=== PATIENT | female | born 1990 | race Two or more races ===

== ENCOUNTER 2020-03-16 12:50 | Emergency (ER) | payer OTHER ==
[2020-03-16] MEDS ORDERED: ACETAMINOPHEN 325 MG TABLET PO ONE (14:35)
--- NOTE | 2020-03-16 14:36 | ER Document Report ---
ED Fever - General Chief Complaint: Cough Stated Complaint: COUGH,DIARRHEA,FEVER,HEADACHE Time Seen by Provider: 03/16/20 13:46 Primary Care Provider: MIKE NYE MD [COMMUNITY BASED STAFF] - Follow up as needed Mode of Arrival: Ambulatory Information source: Patient Notes: 29-year-old female with no previous medical problems presents to the emergency room complaining of 2 loose diarrhea type stools daily for the past 2days. Also complains of a low-grade fever, headache, sore throat, cough. Patient states she has been running a low-grade fever of 99 she went to work today was positive for fever and was referred to the emergency room. Patient said she was sent home from work and told to quarantine for 2 weeks as she works as a terrazzo worker apprenticepersonnel training officer for [employer] she has not had any recent travel. She has had no known COVID-19 exposure. TRAVEL OUTSIDE OF THE [place] IN LAST 30 DAYS: No - Related Data Allergies/Adverse Reactions: No Known Allergies Allergy (Unverified 03/16/20 15:33) Past Medical History - General Information source: Patient - Social History Smoking Status: Never Smoker Frequency of alcohol use: Occasional Drug Abuse: None Family History: Reviewed & Not Pertinent - Medical History Medical History: Negative Review of Systems - Review of Systems Constitutional: Fever EENT: Throat pain Cardiovascular: No symptoms reported Respiratory: Cough. denies: Short of breath Gastrointestinal: No symptoms reported Musculoskeletal: No symptoms reported Skin: No symptoms reported Hematologic/Lymphatic: No symptoms reported Neurological/Psychological: Headaches -: Yes All other systems reviewed and negative Physical Exam - Vital signs Vitals: Temp Pulse Resp BP Pulse Ox 100.0 F 88 16 118/66 100 03/16/20 13:35 03/16/20 13:35 03/16/20 13:35 03/16/20 13:35 03/16/20 13:35 - Notes Notes: VITAL SIGNS: Within normal limits. GENERAL: Mild acute distress, non-toxic appearance. HEAD: Normal with no signs of head trauma. EYES: PERRLA, EOMI, conjunctiva normal, no discharge. EARS: Hearing grossly intact. NOSE: Normal. THROAT: Oropharynx is normal. Posterior pharyngeal erythema without exudate. No tonsillar enlargement. NECK: Normal range of motion, no tenderness, supple, no lymphadenopathy, No adenopathy, no JVD. No meningococcal signs, CHEST: Clear breath sounds bilaterally. No wheezes, rales, or rhonchi. CARDIAC: Regular rate and rhythm. S1 and S2, without murmurs, gallops, or rubs. VASCULAR: No Edema. Peripheral pulses normal and equal in all extremities. ABDOMEN: Normal and soft with no tenderness, no masses or pulsatile masses. GASTROINTESTINAL: Bowel sounds normal GENITOURINARY: Normal, No tenderness LYMPATHTIC: No lymphadenopathy noted. MUSCULOSKELETAL: Good range of motion of all major joints. Extremities without clubbing, cyanosis or edema. NEUROLOGICAL: Alert and oriented x 3. No focal sensory or strength deficits. Speech normal. Follows commands appropriately. PSYCHIATRIC: Normal Affect, judgement and mood. SKIN: Normal appearance with no rashes or lesions. Course - Re-evaluation Re-evalutation: 03/16/20 16:34 She is resting comfortably she is afebrile, nontoxic-appearing, tolerates p.o. fluids. Reviewed all test results with patient. Patient is concerned about possible COVID-19 as she works as a personnel training officer for [employer]. Patient was counseled that we can do COVID-19 testing however the test results could take anywhere from 6 to 8 days. She will need to self quarantine until she gets her test results. If her test results are positive she needs to continue self quarantine for a full 14 days. Patient refused COVID 19 testing. Patient was counseled on a clear liquid diet for the next 24 hours. Advance to bland diet as tolerated. Outpatient follow-up with a primary care physician if not improving in 2 to 3 days. On-call physician was provided. Patient was given strict return to the emergency room guidelines. Return for any new or worsening symptoms. All questions were answered. Patient verbalized understanding and agrees with plan of care. 03/16/20 16:48 - Vital Signs Vital signs: Temp Pulse Resp BP Pulse Ox 99.3 F 87 18 131/80 H 99 03/16/20 17:19 03/16/20 17:19 03/16/20 17:19 03/16/20 17:19 03/16/20 17:19 - Laboratory Laboratory results interpreted by me: 03/16/20 15:40 Urine Ketones 80 H Urine Blood LARGE H - Diagnostic Test Radiology reviewed: Reports reviewed Discharge - Discharge Clinical Impression: Cough Fever Qualifiers: Fever type: unspecified Qualified Code(s): R50.9 - Fever, unspecified Diarrhea Qualifiers: Diarrhea type: unspecified type Qualified Code(s): R19.7 - Diarrhea, unspecified Condition: Stable Disposition: HOME, SELF-CARE Instructions: Clear Liquid Diet ([facility]), Diarrhea, Nonspecific ([facility]), Fever ([facility]), Viral Syndrome ([facility]) Additional Instructions: Take Tylenol and/or Motrin as needed for fevers. You need to self quarantine for the next 14 days unless you receive a negative COVID-19 test result prior to that time. Recommend outpatient follow-up with her primary care physician if not improving in 2 to 3 days. Return for any new or worsening symptoms. Referrals: MIKE NYE MD [COMMUNITY BASED STAFF] - Follow up as needed
--- NOTE | 2020-03-16 15:45 | RADIOLOGY REPORT (SQ) ---
EXAM DESCRIPTION: CHEST SINGLE VIEW IMAGES COMPLETED DATE/TIME: 03/16/2020 3:22 pm REASON FOR STUDY: cough COMPARISON: None. EXAM PARAMETERS: NUMBER OF VIEWS: One view. TECHNIQUE: Single frontal radiographic view of the chest acquired. RADIATION DOSE: NA LIMITATIONS: None. FINDINGS: LUNGS AND PLEURA: No opacities, masses or pneumothorax. No pleural effusion. MEDIASTINUM AND HILAR STRUCTURES: No masses. Contour normal. HEART AND VASCULAR STRUCTURES: Heart normal in size. Normal vasculature. BONES: No acute findings. HARDWARE: None in the chest. OTHER: No other significant finding. IMPRESSION: NO ACUTE RADIOGRAPHIC FINDING IN THE CHEST. TECHNICAL DOCUMENTATION: JOB ID: [id number] 2010 [employer]- All Rights Reserved Reading location - IP/workstation name: [email or web address]
[2020-03-16 16:19] LABS: APPEARANCE,URINE CLEAR; BILIRUBIN,URINE NEGATIVE (NEGATIVE); COLOR,URINE YELLOW; GLUCOSE, URINE NEGATIVE (NEGATIVE); KETONES,URINE 80 mg/dL (NEGATIVE); LEUKOCYTE ESTERASE,URINE NEGATIVE (NEGATIVE); NITRITE,URINE NEGATIVE (NEGATIVE); PROTEIN,URINE NEGATIVE (NEGATIVE); URINE SPECIFIC GRAVITY 1.011; UROBILINOGEN,URINE NEGATIVE mg/dL (<2.0)
[2020-03-16 16:31] LABS: A TYPE INFLUENZA AG NEGATIVE (NEGATIVE); B INFLUENZA AG NEGATIVE (NEGATIVE)
[2020-03-16 17:22] VITALS: BP 131/80
== END 2020-03-16 17:22 | disposition home or self-care (01) ==
LOC: ER 12:50
DX: R05 Cough (principal); R19.7 Diarrhea, unspecified; R50.9 Fever, unspecified; R51 Headache; Z20.828 Contact with and (suspected) exposure to other viral communicable diseases
CPT/HCPCS: 71045; 81001; 81025; 87070; 87804; 87880; 99283

== ENCOUNTER 2020-03-20 18:47 | Emergency (ER) | payer OTHER ==
--- NOTE | 2020-03-20 20:13 | ER Document Report ---
ED Respiratory Problem - General Chief Complaint: Shortness Of Breath Stated Complaint: DIFFICULTY BREATHING/NAUSEA/VOMITING Time Seen by Provider: 03/20/20 19:33 Notes: CHIEF COMPLAINT: Continued cough, flulike symptoms, vaginal itching HPI: 29-year-old female presenting to the emergency department for reevaluation, states she was seen here 4 days ago for same complaints, states she has a continued productive cough with yellow sputum. Reports some pain in the right back and thoracic region not sure if it is from coughing. Patient reports vaginal itching that began yesterday. Patient denies dysuria. States she has not had fever but has had some nausea. ROS: See HPI - all other systems were reviewed and are otherwise negative Constitutional: no fever Eyes: no drainage, no blurred vision ENT: no runny nose, no sore throat Cardiovascular: + chest pain with coughing Resp: no SOB, + cough GI: no vomiting, no diarrhea, no abdominal pain : no dysuria, positive vaginal itching Integumentary: no rash Allergy: no hives Musculoskeletal: no extremity pain or swelling Neurological: no numbness/tingling, no weakness MEDICATIONS: I agree with the patient medications as charted by the RN. ALLERGIES: I agree with the allergies as charted by the RN. PAST MEDICAL HISTORY/PAST SURGICAL HISTORY: Reviewed and agree as charted by RN. SOCIAL HISTORY: Reviewed and agree as charted by RN. FAMILY HISTORY: No significant familial comorbid conditions directly related to patient complaint EXAM: Reviewed vital signs as charted by RN. CONSTITUTIONAL: Alert and oriented and responds appropriately to questions. Well-appearing; well-nourished HEAD: Normocephalic; atraumatic EYES: PERRL; Conjunctivae clear, sclerae non-icteric ENT: normal nose; no rhinorrhea; moist mucous membranes; pharynx without lesions noted, no uvula edema or deviation, no tonsillar hypertrophy, phonation normal NECK: Supple without meningismus; non-tender; no cervical lymphadenopathy, no masses CARD: RRR; no murmurs, no clicks, no rubs, no gallops; symmetric distal pulses RESP: Normal chest excursion without splinting or tachypnea; breath sounds clear and equal bilaterally; no wheezes, no rhonchi, no rales, pulse oximetry 97% on room air not hypoxic ABD/GI: Normal bowel sounds; non-distended; soft, non-tender, no rebound, no guarding; no palpable organomegaly or masses. : Female nurse manager protein present. External genitalia normal. No skin lesions noted. Pelvic Exam: No active bleeding. No purulent discharge. Cervix appears normal. No CMT. No lesions or masses. Uterus normal size and non tender. Right/Left adnexa normal size and non tender. BACK: The back appears normal and is non-tender to palpation, there is no CVA tenderness EXT: Normal ROM in all joints; non-tender to palpation; no cyanosis, no effusions, no edema SKIN: Normal color for age and race; warm; dry; good turgor; no acute lesions noted NEURO: Moves all extremities equally; Motor and sensory function intact PSYCH: The patient's mood and manner are appropriate. Grooming and personal hygiene are appropriate. MDM: TRAVEL OUTSIDE OF THE [place] IN LAST 30 DAYS: No - Related Data Allergies/Adverse Reactions: No Known Allergies Allergy (Unverified 03/16/20 15:33) Past Medical History - Social History Smoking Status: Never Smoker Frequency of alcohol use: Occasional Drug Abuse: None Family History: Reviewed & Not Pertinent Patient has homicidal ideation: No Physical Exam - Vital signs Vitals: Temp 98.4 F 03/20/20 19:00 Course - Re-evaluation Re-evalutation: 03/20/20 21:05 I discussed evaluation results at length with the patient. We discussed her trichomonas diagnosis. She is aware she needs to notify any sexual partners the need for treatment no sexual intercourse for 10 days. Patient is complaining of some nausea currently, will place her on 1 week of Flagyl 500 mg twice daily to treat the Trichomonas. She is aware GC and Chlamydia cultures are pending. She is aware COVID culture is pending, self quarantine at home for [address] the patient on an inhaler of albuterol for her cough. Her discomfort in the right side is likely from her coughing as it is somewhat reproducible. Urine did show some white cells but it was not a true clean-catch specimen, will add a urine culture. Patient verbalizes understanding - Vital Signs Vital signs: Temp Pulse Resp BP Pulse Ox 98 F 84 16 137/89 H 100 03/20/20 19:38 03/20/20 19:38 03/20/20 19:38 03/20/20 19:38 03/20/20 19:38 - Laboratory Laboratory results interpreted by me: 03/20/20 20:39 Urine Ketones 80 H Urine Blood SMALL H Ur Leukocyte Esterase LARGE H Discharge - Discharge Clinical Impression: Person under investigation for COVID-19, Trichomonas infection Condition: Stable Disposition: HOME, SELF-CARE Instructions: Trichomonas Infection ([facility]) Additional Instructions: Continue to take the Mucinex to help with coughing. Use the albuterol inhaler 2 puffs every 4 hours as needed for coughing. Motrin or Tylenol consistently for pain. You were noted to have trichomonas on your exam today, this is considered a sexually transmitted disease. No sexual intercourse for 10 days. You have been prescribed Flagyl to treat this. Notify any sexual partners of need for treatment so you do not pass this infection. You are considered a person under investigation at this time self quarantine at home until you have a negative COVID study which normally takes 24 to 48 hours and you will hear from someone from the hospital about this Prescriptions: Metronidazole [Flagyl 500 mg Tablet] 500 mg PO BID #14 tablet Albuterol Sulfate [Proair HFA Inhalation Aerosol 8.5 gm MDI] 2 puff IH Q4H PRN #1 mdi PRN Reason: Ondansetron [Zofran Odt 4 mg Tablet] 1 - 2 tab PO Q4H PRN #15 tab.rapdis PRN Reason: For Nausea/Vomiting Referrals: SARAH COLEMAN MD [ACTIVE STAFF] - Follow up as needed
--- NOTE | 2020-03-20 20:24 | RADIOLOGY REPORT (SQ) ---
EXAM DESCRIPTION: XR CHEST 1 VIEW COMPLETED DATE/TME: 03/20/2020 19:46 CLINICAL HISTORY: 29 years, Female, cough COMPARISON: Prior chest radiograph from 03/16/2020 NUMBER OF VIEWS: One TECHNIQUE: Single frontal view of the chest was obtained portably LIMITATIONS: None. FINDINGS: Cardiac and mediastinal contours are stable. Lungs are clear. No pleural effusion or pneumothorax. IMPRESSION: No acute disease. copyright 2010 [employer]- All Rights Reserved
[2020-03-20 20:48] LABS: BACTERIA (WET MOUNT) 3+ BACTERIA SEEN; EPITHELIALS (WET MOUNT) 3+ EPITHELIALS SEEN; RBCS (WET MOUNT) 1+ RBCS SEEN; T.VAGINALIS (WET MOUNT) TRICHOMONAS SEEN; WBCS (WET MOUNT) 1+ WBCS SEEN; YEAST (WET MOUNT) NO YEAST SEEN
[2020-03-20 20:49] LABS: APPEARANCE,URINE SLIGHTLY-CLOUDY; BILIRUBIN,URINE NEGATIVE (NEGATIVE); COLOR,URINE YELLOW; GLUCOSE, URINE NEGATIVE (NEGATIVE); KETONES,URINE 80 mg/dL (NEGATIVE); LEUKOCYTE ESTERASE,URINE LARGE (NEGATIVE); NITRITE,URINE NEGATIVE (NEGATIVE); PROTEIN,URINE NEGATIVE (NEGATIVE); URINE SPECIFIC GRAVITY 1.012; UROBILINOGEN,URINE NEGATIVE mg/dL (<2.0)
[2020-03-20] MEDS ORDERED: ONDANSETRON 4 MG TAB.RAPDIS PO ONE (21:03)
[2020-03-20 21:34] VITALS: BP 128/81
[2020-03-20 22:16] LABS: CHLAM PCR NOT DETECTED (NOT DETECT)
== END 2020-03-20 21:34 | disposition home or self-care (01) ==
LOC: ER 18:47
DX: U07.1 COVID-19 (principal); A59.9 Trichomoniasis, unspecified; R05 Cough; M54.9 Dorsalgia, unspecified; R11.0 Nausea
CPT/HCPCS: 99285; 87086; 87210; 87635; 81025; 87088; 81001; 87491; 87591; 71045; S0119; C9803

== ENCOUNTER 2020-03-23 23:45 | Emergency (ER) | payer OTHER ==
[2020-03-24] MEDS ORDERED: DEXAMETHASONE SOD PHOS INJ 10 MG/1 ML VIAL IM ONE (00:31)
--- NOTE | 2020-03-24 00:37 | ER Document Report ---
HPI - HPI Time Seen by Provider: 03/24/20 00:00 Pain Level: Denies Context: Patient is a 29-year-old female that comes emergency department for chief complaint of sore throat, cough, body aches. Patient states that she became concerned tonight because she woke up from sleep gagging on mucus and felt like she could not swallow for a brief period of time. She reports increasing pain with swallowing. She still able to swallow, she states she is hydrating well, she denies vomiting, headache, difficulty breathing, chest pain. She states she was running fevers but these resolved. She states she was seen twice already recently, she had COVID-19 testing but is still pending the results. She denies smoking, she denies any daily medications, she denies any diagnosed medical history. She denies . - CONSTITUTIONAL Constitutional: DENIES: Fever, Chills - RESPIRATORY Respiratory: REPORTS: Coughing - REPRODUCTIVE Reproductive: DENIES: : Past Medical History - General Information source: Patient - Social History Smoking Status: Never Smoker Frequency of alcohol use: None Drug Abuse: None Lives with: Family Family History: Reviewed & Not Pertinent Patient has homicidal ideation: No Surgical Hx: Negative - Immunizations Immunizations up to date: Yes Hx Diphtheria, Pertussis, Tetanus Vaccination: Yes Vertical Provider Document - CONSTITUTIONAL General Appearance: WD/WN, No Apparent Distress - INFECTION CONTROL TRAVEL OUTSIDE OF THE [place] IN LAST 30 DAYS: No - HEENT HEENT: Atraumatic, Normocephalic. negative: Normal ENT Exam - Tonsillitis with erythema both tonsils, no peritonsillar abscess, unremarkable uvula, patent airway. Unremarkable ears, eyes, sinuses. - NECK Neck: Other - Mild bilateral anterior cervical adenopathy - RESPIRATORY Respiratory: Breath Sounds Normal, No Respiratory Distress - CARDIOVASCULAR Cardiovascular: Regular Rate, Regular Rhythm - GI/ABDOMEN Gastrointestinal: Abdomen Soft, Abdomen Non-Tender. negative: Abdomen Tender - BACK Back: Normal Inspection - MUSCULOSKELETAL/EXTREMETIES Musculoskeletal/Extremeties: MAEW, FROM, Non-Tender - NEURO Level of Consciousness: Awake, Alert, Appropriate Motor/Sensory: No Motor Deficit, No Sensory Deficit - DERM Integumentary: Warm, Dry, No Rash Course - Re-evaluation Re-evalutation: Review of previous records shows that patient is negative for strep, negative for throat culture growth, but positive for COVID-19. Patient has tonsillitis with erythema of the tonsils bilaterally but no peritonsillar abscess, mild lymphadenopathy anteriorly. She has clear lungs, no cough, no headache, no nuchal rigidity, soft abdomen, no vomiting, and vital signs are unremarkable. She is actually very well-appearing. She is tolerating secretions and can take p.o. without any difficulty. Patient does not require admission, we discussed options. Patient will be given dexamethasone for her symptoms, discussed [id number] medications, quarantine, follow-up, return precautions in detail. Patient states understanding and agreement. Stable and well-appearing at time of discharge. - Vital Signs Vital signs: Temp Pulse Resp BP Pulse Ox 98.4 F 74 16 139/71 H 99 03/24/20 00:01 03/24/20 00:01 03/24/20 00:01 03/24/20 00:01 03/24/20 00:01 Discharge - Discharge Clinical Impression: Tonsillitis, COVID-19 Pharyngitis Qualifiers: Pharyngitis/tonsillitis etiology: unspecified etiology Qualified Code(s): J02.9 - Acute pharyngitis, unspecified Condition: Stable Disposition: HOME, SELF-CARE Additional Instructions: You are positive for COVID-19, this is a viral illness that resolved with time. Please complete the 2-week quarantine to avoid infecting others with this. You can take 600 mg of ibuprofen and 1000 mg of Tylenol every 6 hours if needed for pain, drink plenty fluids, you have been medicated with Decadron to help with your symptoms as well. Follow with primary care. Return if you worsen including spiking fevers, difficulty breathing, inability to swallow, or any other concerning or worsening symptoms.
[2020-03-24 01:22] VITALS: BP 117/64
== END 2020-03-24 01:22 | disposition home or self-care (01) ==
LOC: ER 23:45
DX: U07.1 COVID-19 (principal); J02.9 Acute pharyngitis, unspecified; R05 Cough; M79.10 Myalgia, unspecified site
CPT/HCPCS: 99284; 96372; J1100

== ENCOUNTER 2020-03-25 05:33 | Emergency (ER) | payer OTHER ==
[2020-03-25] MEDS ORDERED: NORMAL SALINE 1000 ML 1,000 ML IV ONE (06:35)
--- NOTE | 2020-03-25 06:37 | ER Document Report ---
ED General - General Chief Complaint: Sore Throat Stated Complaint: SORE THROAT/COVID POSSITIVE Time Seen by Provider: 03/25/20 06:01 Notes: 29-year-old female presents to the emergency department history of the coronavirus positive diagnosis last week. She has been in the emergency department third visit because of what appears to be anxiety related to her diagnosis and symptoms. She is complaining of shortness of breath and some difficulty swallowing. She presently is afebrile and in no respiratory distress. TRAVEL OUTSIDE OF THE [place] IN LAST 30 DAYS: No - Related Data Allergies/Adverse Reactions: No Known Allergies Allergy (Unverified 03/24/20 00:17) Past Medical History - General Information source: Patient - Social History Smoking Status: Never Smoker Chew tobacco use (# tins/day): No Frequency of alcohol use: None Drug Abuse: None Family History: Reviewed & Not Pertinent Patient has homicidal ideation: No - Immunizations Immunizations up to date: Yes Hx Diphtheria, Pertussis, Tetanus Vaccination: Yes Review of Systems - Review of Systems Notes: Constitutional: Negative for fever. HENT: + Swallowing difficulties, + sore throat Eyes: Negative for visual changes. Cardiovascular: Negative for chest pain. Respiratory: + Shortness of breath. Gastrointestinal: Negative for abdominal pain, vomiting or diarrhea. Genitourinary: Negative for dysuria. Musculoskeletal: Negative for back pain. Skin: Negative for rash. Neurological: Negative for headaches, weakness or numbness. 10 point ROS negative except as marked above and in HPI. Physical Exam - Vital signs Vitals: Temp Pulse BP Pulse Ox 98.6 F 80 127/81 H 100 03/25/20 05:55 03/25/20 05:55 03/25/20 05:55 03/25/20 05:55 - Notes Notes: PHYSICAL EXAMINATION: Physical Exam: General: Well-nourished [id number] year-old female in no acute distress HEENT: NC/AT, pupils equal round and reactive to light, MM moist,nares clear, oropharynx clear, airway patent Neck: supple, no adenopathy, no masses. Good range of motion Lungs: clear, no wheezing, no rales no rhonchi CVS: Regular rate and rhythm no murmur gallop or rub Abdomen: Soft, active, nontender, no masses, no hepatosplenomegaly Ext: No edema, clubbing or cyanosis. Neuro: Alert and responsive, moving all 4 extremities on command, cranial nerves intact, no focal findings Skin: Intact no open lesions, no rash PSYCH: Somewhat anxious and nervous, Course - Re-evaluation Re-evalutation: 03/25/20 09:11 The patient's chest x-ray continues to be clear, CBC reveals and anemia however, white cell count is normal and platelets are normal. I have discussed these findings with the patient and expressed to her my concerns about her anxiety provoking the recurrent visits to the emergency department. She is encouraged to quarantine at home and to use the vitamin D and zinc that she has been given as a part of the treatment protocol. The patient states that she understands this plan and is in agreement. - Vital Signs Vital signs: Temp Pulse Resp BP Pulse Ox 98.6 F 80 112/74 100 03/25/20 05:55 03/25/20 05:55 03/25/20 07:33 03/25/20 07:34 - Laboratory Result Diagrams: 03/25/20 06:57 03/25/20 07:30 Laboratory results interpreted by me: 03/25/20 06:57 Hgb 9.3 L Hct 30.1 L MCV 63 L MCH 19.5 L MCHC 31.0 L RDW 18.1 H [place] % (Auto) 13.4 H Discharge - Discharge Clinical Impression: COVID-19 virus infection, Anxiety Condition: Good Disposition: HOME, SELF-CARE Additional Instructions: You are diagnosed with coronavirus infection. Your symptoms are related to a viral illness, you you should self isolate at home, you are given a prescription for vitamin D and zinc. These 2 compounds are thought to help the immune system fight off the virus. Please continue to avoid given this virus to other people. Please wear a face cover, social distancing and isolation is needed. HOME CARE INSTRUCTIONS & INFORMATION: Thank you for choosing us for your medical needs. We hope you're satisfied with the care you received. After you leave, you must properly care for your problem and, at the same time, observe its progress. Any condition can change. Some illnesses can change rapidly over hours or days. If your condition worsens, return to the Emergency Department or see your physician promptly. ABOUT YOUR X-RAYS AND EKG'S: If you had an EKG or X-rays taken, they have been read by the Emergency Physician. The X-rays and EKG's will also be read by a Radiologist or Testing Director within 24 hours. If discrepancies are noted, you will be notified by telephone. Please be certain the ED has a correct telephone number & address where you can be reached. Also, realize that some fractures or abnormalities do not show up on initial X-rays. If your symptoms continue, see your physician. ABOUT YOUR LABORATORY TEST: If you had laboratory tests, the results have been reviewed by the Emergency Physician. Some test results (for example cultures) may not be available for several days. You will be contacted if any test result shows you need additional treatment. Please be certain the ED has a correct telephone number and address where you can be reached. ABOUT YOUR MEDICATIONS: You will receive instructions on how to take your medi cine on the prescription label you receive. Additional information may be provided by the Pharmacy. If you have questions afterwards, call the ED for clarification or further instructions. Some prescribed medications may cause drowsiness. Do not perform tasks such as driving a car or operating machinery without consulting your Pharmacist. If you feel you need a refill of pain medication, your condition will need re-evaluation. Please do not call for a refill of any medication. ABOUT YOUR SIGNATURE: Signature of this document acknowledges to followin. Understanding that you received emergency treatment and that you may be released before al medical problems are known or treated. Please be certain the ED has a correct phone number & address where you can be reached. 2. Acknowledgement that you will arrange for follow-up care as recommended. 3. Authorization for the Emergency Physician to provide information to your follow-up Physician in order to maximize your care. AT ANY TIME, IF YOUR SYMPTOMS CHANGE SIGNIFICANTLY OR WORSEN OR YOU DEVELOP NEW SYMPTOMS, RETURN TO THE EMERGENCY DEPARTMENT IMMEDIATELY FOR RE-EVALUATION. OUR GOAL IS TO PROVIDE EXCELLENT MEDICAL CARE! WE HOPE THAT WE HAVE MET YOUR EXPECTATIONS DURING YOUR EMERGENCY DEPARTMENT VISIT AND THAT YOU FEEL YOU HAVE RECEIVED EXCELLENT CARE! Prescriptions: Cholecalciferol (Vitamin D3) [Vitamin D3 3000 unit Tablet] 3,000 unit PO DAILY #60 tablet Zinc [Zinc Chelated] 50 mg PO DAILY #60 tablet
[2020-03-25] MEDS ORDERED: DEXAMETHASONE SOD PHOSPHATE INJ 4 MG/1 ML VIAL IV ONE (06:56)
[2020-03-25 08:03] LABS: ABSOLUTE LYMPHOCYTES (AUTO) 1.1 10^3/uL (0.5-4.7); ABSOLUTE MONOCYTES (AUTO) 0.6 10^3/uL (0.1-1.4); ABSOLUTE NEUT (AUTO) 2.9 10^3/uL (1.7-8.2); BASOPHILS % (AUTO) 0.1 % (0-2); EOSINOPHILS % (AUTO) 0.3 % (0-6); HEMATOCRIT 30.1 % (36.0-47.0); HEMOGLOBIN 9.3 g/dL (12.0-15.5); LYMPHOCYTES % (AUTO) 23.8 % (13-45); MEAN CORPUSCULAR HEMOGLOBIN 19.5 pg (27.0-33.4); MONOCYTES % (AUTO) 13.4 % (3-13); RED BLOOD COUNT 4.78 10^6/uL (3.72-5.28); RED CELL DISTRIBUTION WIDTH 18.1 % (11.5-14.0); SEGMENTED NEUTROPHILS % (AUTO) 62.4 % (42-78); TOTAL CELLS COUNTED % (AUTO) 100 %; WHITE BLOOD COUNT 4.6 10^3/uL (4.0-10.5)
--- NOTE | 2020-03-25 08:38 | RADIOLOGY REPORT (SQ) ---
EXAM DESCRIPTION: CHEST SINGLE VIEW IMAGES COMPLETED DATE/TIME: 03/25/2020 8:04 am REASON FOR STUDY: shortness of breath COMPARISON: AP view of the chest from 03/20/2020. EXAM PARAMETERS: NUMBER OF VIEWS: One view. TECHNIQUE: An AP view of the chest was obtained. RADIATION DOSE: NA LIMITATIONS: None. FINDINGS: LUNGS AND PLEURA: No consolidation, pleural effusion or pneumothorax. MEDIASTINUM AND HILAR STRUCTURES: No mediastinal or hilar contour abnormality. HEART AND VASCULAR STRUCTURES: The cardiac silhouette and pulmonary vasculature are within normal epperson its. BONES: No acute findings. HARDWARE: None in the chest. OTHER: No other finding. IMPRESSION: No acute cardiopulmonary process. TECHNICAL DOCUMENTATION: JOB ID: [id number] 2010 [employer]- All Rights Reserved Reading location - IP/workstation name: [email or web address]
[2020-03-25 08:39] LABS: ANISOCYTOSIS 1+; HYPOCHROMASIA 1+; OVALOCYTES 2+; PLATELET CLUMPS PRESENT; PLATELET COMMENT ADEQUATE; PLATELET LARGE PRESENT; POIKILOCYTOSIS 2+; POLYCHROMASIA SLIGHT; SCHISTOCYTES SLIGHT
[2020-03-25 08:40] LABS: PLATELET COUNT 367 10^3/uL (150-450)
[2020-03-25 08:41] LABS: MEAN CORPUSCULAR VOLUME 63 fl (80-97); TEAR DROP CELLS 1+
[2020-03-25 09:06] LABS: ALBUMIN 4.3 g/dL (3.5-5.0); ALKALINE PHOSPHATASE 57 U/L (38-126); ANION GAP 11 (5-19); ASPARTATE AMINO TRANSFERASE 21 U/L (14-36); BILIRUBIN,TOTAL 0.4 mg/dL (0.2-1.3); BLOOD UREA NITROGEN 10 mg/dL (7-20); CALCIUM 9.1 mg/dL (8.4-10.2); CARBON DIOXIDE 21 mmol/L (22-30); CHLORIDE 104 mmol/L (98-107); GLUCOSE 90 mg/dL (75-110); POTASSIUM 3.9 mmol/L (3.6-5.0); TOTAL PROTEIN 7.3 g/dL (6.3-8.2)
[2020-03-25 09:59] VITALS: BP 127/91
[2020-03-25 14:00] LABS: PATH REVIEW PATHOLOGIST REVIEWED
== END 2020-03-25 09:59 | disposition home or self-care (01) ==
LOC: ER 05:33
DX: U07.1 COVID-19 (principal); F41.9 Anxiety disorder, unspecified; J02.9 Acute pharyngitis, unspecified; R06.02 Shortness of breath; R13.10 Dysphagia, unspecified
CPT/HCPCS: 99283; 96361; 96374; 36415; 85025; 80053; 71045; J1100; J7030

== ENCOUNTER 2020-03-25 19:56 | Emergency (ER) | payer OTHER ==
[2020-03-25 20:23] VITALS: BP 137/76
--- NOTE | 2020-03-25 21:18 | ER Document Report ---
ED General - General Chief Complaint: covid Stated Complaint: CHEST PAIN, DIFFICUTLY SWALLOWING Notes: Patient is a 29-year-old otherwise healthy young female who presents to the emergency department after being diagnosed with COVID-19. This is her fifth visit over a span of the past 10 days to the emergency department for the same complaints. She was previously instructed on plan, given medications and instructed to quarantine. She states she was here this morning, discharged with new prescriptions but did not get them filled because she wanted to go home and rest. She states she was feeling better, took a nap and when she woke she was feeling bad again so she had her sister bring her here for reevaluation. Patient complains of the same ongoing dry cough, the same tenderness to the right upper chest wall, right back and right trapezius. She admits to some fleeting diarrhea. States that she has a sensation of loss of taste of the tongue which makes it feel numb and concerns her in regards to swallowing but she denies any difficulty with secretions or liquids. No trouble breathing. Patient denies any new symptoms but is concerned for worsening. No known ongoing fever. No other new sick contacts or travel. TRAVEL OUTSIDE OF THE [place] IN LAST 30 DAYS: No - Related Data Allergies/Adverse Reactions: No Known Allergies Allergy (Verified 03/25/20 20:52) Past Medical History - Social History Smoking Status: Never Smoker Chew tobacco use (# tins/day): No Family History: Reviewed & Not Pertinent - Immunizations Immunizations up to date: Yes Hx Diphtheria, Pertussis, Tetanus Vaccination: Yes Review of Systems - Review of Systems Notes: As per HPI Physical Exam - Vital signs Vitals: Temp Pulse Resp BP Pulse Ox 98.0 F 74 16 137/76 H 98 03/25/20 20:21 03/25/20 20:21 03/25/20 20:21 03/25/20 20:21 03/25/20 20:21 - General General appearance: Appears well, Alert In distress: None - HEENT Head: Normocephalic, Atraumatic Eyes: Normal Conjunctiva: Normal Extraocular movements intact: Yes Eyelashes: Normal Pupils: PERRL Ears: Normal External canal: Normal Nasal: Normal Mouth/Lips: Normal Mucous membranes: Normal Pharynx: Normal Neck: Normal, Supple - Respiratory Respiratory status: No respiratory distress Chest status: Nontender Breath sounds: Normal Chest palpation: Normal - Cardiovascular Rhythm: Regular Heart sounds: Normal auscultation - Abdominal Inspection: Normal Distension: No distension Bowel sounds: Normal Tenderness: Nontender Organomegaly: No organomegaly - Extremities General upper extremity: Normal inspection, Nontender, Normal color, Normal ROM, Normal temperature General lower extremity: Normal inspection, Nontender, Normal color, Normal ROM, Normal temperature, Normal weight bearing. No: Geraldine's sign - Neurological Neuro grossly intact: Yes Cognition: Normal Orientation: AAOx4 - Psychological Associated symptoms: Anxious - Skin Skin Temperature: Warm Skin Moisture: Dry Skin Color: Normal Course - Re-evaluation Re-evalutation: 03/25/20 21:12 This is the patient's fifth visit here in the first 10 days of this month for the same complaints. She has not been compliant with previous medication recommendations or regimens. She states that she is almost out of the nausea medication but he is she has not even used her albuterol inhaler. She has received multiple rounds of steroid medications here. She was instructed to ta ke Tylenol at home for any aches or pains and she has not done so. She states that she is scared to try to swallow pills because of the decreased sensation and taste on her tongue. She has been using liquid medications [id number] for pain. She was prescribed this morning zinc and vitamin D3 for immune support. She did not fill these medications, after discharge this morning she went home and went to bed. She states she was feeling better when she woke up from her nap she was feeling bad again so she had her sister drive her here and drop her into the main lobby area for reevaluation. We discussed this at length and that she should be quarantining herself and should she need transport to an emergency department to be done by qualified emergency diagnostic medical sonographer who are able to protect themselves and her from any potential extra transmission that is unnecessary such as sitting in a waiting room with other guests without a mask. Her work-up this morning showed a chest x-ray that was negative and a laboratory study work-up that was unremarkable. We discussed the importance of taking the medications as prescribed and following the directions given. Her exam today shows her to be at baseline. No acute distress. She is get some tenderness to the right upper posterior back right trapezius and right upper anterior chest to palpation and with deep inspiration. Likely from ongoing cough. We will give her a refill of her Zofran medication and she will use the other medicines as prescribed and previously discussed. We counseled her regarding supportive care measures and once again the importance of quarantine. She has a follow-up appointment with her PCP on the , in 5 days. She has no clinical evidence on exam of worsening. Her lungs are clear to auscultation bilaterally. She is nondiaphoretic nontoxic and in no acute distress. She appears to be very anxious surrounding the diagnosis of COVID-19 and continues to return based on those fears and anxiety. She is young and otherwise healthy and despite several visits have shown no evidence of worsening. She is stable and appropriate for discharge and outpatient follow-up. Should she worsen she will call 911 and return immediately to the emergency department. - Vital Signs Vital signs: Temp Pulse Resp BP Pulse Ox 98.0 F 74 16 137/76 H 98 03/25/20 20:21 03/25/20 20:21 03/25/20 20:21 03/25/20 20:21 03/25/20 20:21 Discharge - Discharge Clinical Impression: COVID-19 virus infection Condition: Stable Disposition: HOME, SELF-CARE Instructions: COVID-19 Guidance for Persons Under Investigation Additional Instructions: Please follow-up with your new doctor, your primary on the of this month as scheduled and discussed. Please call 911 for return here or the nearest emergency department with any new or worsening symptoms. Please use the medications as previously recommended and prescribed. Prescriptions: Ondansetron [Zofran Odt 4 mg Tablet] 4 mg PO Q8 PRN #30 tab.rapdis PRN Reason:
--- NOTE | 2020-03-26 09:59 | EKG REPORT ---
SEVERITY:- NORMAL ECG - SINUS RHYTHM : Confirmed by: David Myers MD 26-Mar-2020 09:58:22
== END 2020-03-25 21:30 | disposition home or self-care (01) ==
LOC: ER 19:56
DX: U07.1 COVID-19 (principal); R07.9 Chest pain, unspecified; R13.10 Dysphagia, unspecified; R05 Cough; R19.7 Diarrhea, unspecified; R07.89 Other chest pain; M54.6 Pain in thoracic spine
CPT/HCPCS: 93005; 93010; 99283